=== PATIENT | male | born 1980 ===

== ENCOUNTER 2019-10-29 07:06 | Outpatient (CLI) | payer BC ==
--- NOTE | 2019-10-29 08:03 | ULT ---
RIGHT UPPER QUADRANT ULTRASOUND: HISTORY: Right upper quadrant pain. FINDINGS: The liver demonstrates increased echogenicity concerning for fatty infiltration with focal sparing ad jacent to the gallbladder. There is sludge in the gallbladder without gallbladder wall thickening, p ericholecystic fluid, or gallstones. The common duct measures 7 mm in diameter. The right kidney an d visualized portions of the pancreas are unremarkable. No free fluid is seen. The exam is limited by patient's body habitus. IMPRESSION: 1. Fatty liver. 2. Gallbladder sludge without gallstones. POS: BENA
== END 2019-10-29 07:07 | disposition home or self-care (01) ==
LOC: BICULT 07:06
PROVIDERS: ATTEND Internal Medicine Gastroenterology
DX: K21.9 Gastro-esophageal reflux disease without esophagitis (principal); R10.11 Right upper quadrant pain; K76.0 Fatty (change of) liver, not elsewhere classified
CPT/HCPCS: 76705